=== PATIENT | female | born 1970 | race Caucasian/White ===

== ENCOUNTER 2017-01-01 13:43 | Emergency (ER) | payer BC, MEDICAID ==
[2017-01-01] MEDS ORDERED: OXYCODONE-ACETAMINOPHEN 5-325 MG TABLET PO ONE (14:56)
[2017-01-01] MEDS ORDERED: ONDANSETRON 4 MG TAB.RAPDIS PO ONE (14:56)
[2017-01-01] MEDS ORDERED: NORMAL SALINE 1000 ML 1,000 ML IV PRN (14:57)
--- NOTE | 2017-01-01 14:58 | ER Document Report ---
ED Medical Screen (RME) - General Chief Complaint: Flank Pain Stated Complaint: FLANK PAIN Time Seen by Provider: 01/01/17 14:51 Mode of Arrival: Ambulatory Information source: Patient Notes: This is a 46-year-old female presenting to the emergency room with left flank pain progressively worsening over the past week. TRAVEL OUTSIDE OF THE [place] IN LAST 30 DAYS: No - Related Data Allergies/Adverse Reactions: No Known Allergies Allergy (Verified 01/01/17 13:58) Past Medical History - Social History Frequency of alcohol use: None Drug Abuse: None Pulmonary Medical History: Reports: Hx Asthma Endocrine Medical History: Reports: Hx Hypothyroidism Renal/ Medical History: Denies: Hx Peritoneal Dialysis Past Surgical History: Reports: Hx Abdominal Surgery, Hx Section, Hx Cholecystectomy, Hx Hysterectomy, Hx Orthopedic Surgery - Immunizations Immunizations up to date: Yes Hx Diphtheria, Pertussis, Tetanus Vaccination: No Physical Exam - Vital signs Vitals: Temp Pulse Resp BP Pulse Ox 98.4 F 80 20 153/95 H 96 01/01/17 13:59 01/01/17 13:59 01/01/17 13:59 01/01/17 13:59 01/01/17 13:59 Course - Vital Signs Vital signs: Temp Pulse Resp BP Pulse Ox 98.4 F 80 20 153/95 H 96 01/01/17 13:59 01/01/17 13:59 01/01/17 13:59 01/01/17 13:59 01/01/17 13:59
[2017-01-01 15:34] LABS: ABSOLUTE BASOPHILS # (AUTO) 0.1 10^3/uL (0.0-0.2); ABSOLUTE EOSINOPHILS # (AUTO) 0.1 10^3/uL (0.0-0.6); ABSOLUTE LYMPHOCYTES (AUTO) 3.3 10^3/uL (0.5-4.7); ABSOLUTE MONOCYTES (AUTO) 0.8 10^3/uL (0.1-1.4); ABSOLUTE NEUT (AUTO) 4.7 10^3/uL (1.7-8.2); BASOPHILS % (AUTO) 0.8 % (0-2); EOSINOPHILS % (AUTO) 1.5 % (0-6); HEMATOCRIT 46.8 % (36.0-47.0); HEMOGLOBIN 15.4 g/dL (12.0-15.5); HGB HCT DIFFERENCE -0.6; LYMPHOCYTES % (AUTO) 36.5 % (13-45); MEAN CORPUSCULAR HGB CONC 32.8 g/dL (32.0-36.0); MEAN CORPUSCULAR VOLUME 85 fl (80-97); MONOCYTES % (AUTO) 8.8 % (3-13); RED BLOOD COUNT 5.48 10^6/uL (3.72-5.28); RED CELL DISTRIBUTION WIDTH 13.5 % (11.5-14.0); SEGMENTED NEUTROPHILS % (AUTO) 52.4 % (42-78); WHITE BLOOD COUNT 8.9 10^3/uL (4.0-10.5)
[2017-01-01 15:39] LABS: APPEARANCE,URINE CLEAR; BILIRUBIN,URINE NEGATIVE (NEGATIVE); GLUCOSE, URINE NEGATIVE (NEGATIVE); KETONES,URINE NEGATIVE (NEGATIVE); LEUKOCYTE ESTERASE,URINE NEGATIVE (NEGATIVE); NITRITE,URINE NEGATIVE (NEGATIVE); PROTEIN,URINE NEGATIVE (NEGATIVE); URINE SPECIFIC GRAVITY 1.015; UROBILINOGEN,URINE NEGATIVE mg/dL (<2.0)
[2017-01-01 15:47] LABS: ALANINE AMINOTRANSFERASE 39 U/L (9-52); ALBUMIN 4.3 g/dL (3.5-5.0); ALKALINE PHOSPHATASE 87 U/L (38-126); ANION GAP 9 (5-19); ASPARTATE AMINO TRANSFERASE 48 U/L (14-36); BILIRUBIN,DIRECT 0.4 mg/dL (0.0-0.4); BILIRUBIN,TOTAL 0.9 mg/dL (0.2-1.3); BLOOD UREA NITROGEN 14 mg/dL (7-20); CALCIUM 9.6 mg/dL (8.4-10.2); CARBON DIOXIDE 27 mmol/L (22-30); CHLORIDE 105 mmol/L (98-107); CREATININE RESULT 0.84 mg/dL (0.52-1.25); GLUCOSE 81 mg/dL (75-110); POTASSIUM 4.3 mmol/L (3.6-5.0); SODIUM 141.4 mmol/L (137-145); TOTAL PROTEIN 8.4 g/dL (6.3-8.2)
--- NOTE | 2017-01-01 15:47 | ER Document Report ---
ED General - General Mode of Arrival: Ambulatory Information source: Patient TRAVEL OUTSIDE OF THE [place] IN LAST 30 DAYS: No - HPI Onset: Other - Refer to HPI notes Similar symptoms previously: Yes Recently seen / treated by doctor: No <YUDELKA DUQUE - Last Filed: 01/01/17 19:15> <MICHELLESYLVIA ANN - Last Filed: 01/01/17 21:43> - General Chief Complaint: Flank Pain Stated Complaint: FLANK PAIN Time Seen by Provider: 01/01/17 14:51 Notes: Patient is a 46 year old female presenting to the emergency department for left- sided back pain. Patient states her pain has been present for 5-6 weeks and has been worse this week. Patient states her pain was gradual and is exacerbated with movement and walking. Patient denies any injury or change in her everyday activities. 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 Patient states this week her pain is moving into her side. Patient has a history of cholecystectomy , multiple orthopedic surgeries, tubal , D&C, hysterectomy, and Cesarian section x2. (YUDELKA DUQUE) - Related Data Allergies/Adverse Reactions: No Known Allergies Allergy (Verified 01/01/17 13:58) Past Medical History - General Information source: Patient - Social History Smoking Status: Never Smoker Cigarette use (# per day): No Chew tobacco use (# tins/day): No Frequency of alcohol use: None Drug Abuse: None Family History: None Patient has suicidal ideation: No Patient has homicidal ideation: No Pulmonary Medical History: Reports: Hx Asthma Endocrine Medical History: Reports: Hx Hypothyroidism Past Surgical History: Reports: Hx Abdominal Surgery, Hx Section, Hx Cholecystectomy, Hx Hysterectomy, Hx Orthopedic Surgery - Immunizations Immunizations up to date: Yes Hx Diphtheria, Pertussis, Tetanus Vaccination: No <YUDELKA DUQUE - Last Filed: 01/01/17 19:15> Review of Systems - Review of Systems Constitutional: No symptoms reported EENT: No symptoms reported Cardiovascular: No symptoms reported Respiratory: No symptoms reported Gastrointestinal: No symptoms reported Genitourinary: No symptoms reported Female Genitourinary: No symptoms reported Musculoskeletal: See HPI, Back pain Skin: No symptoms reported Hematologic/Lymphatic: No symptoms reported Neurological/Psychological: No symptoms reported -: Yes All other systems reviewed and negative <YUDELKA DUQUE - Last Filed: 01/01/17 19:15> Physical Exam - Vital signs Interpretation: Hypertensive <YDUELKA DUQUE - Last Filed: 01/01/17 19:15> <SYLVIA MARTINEZ - Last Filed: 01/01/17 21:43> - Vital signs Vitals: Temp Pulse Resp BP Pulse Ox 98.4 F 80 20 153/95 H 96 01/01/17 13:59 01/01/17 13:59 01/01/17 13:59 01/01/17 13:59 01/01/17 13:59 - Notes Notes: GENERAL: Alert, interacts well. No acute distress. HEAD: Normocephalic, atraumatic. EYES: Appear normal. Pupils equal, round, and reactive to light. ENT: Moist mucus membranes, tongue midline. NECK: Full range of motion. Supple. Trachea midline. LUNGS: Clear to auscultation bilaterally, no wheezes, rales, or rhonchi. No respiratory distress. HEART: Regular rate and rhythm. No murmurs, gallops, or rubs. ABDOMEN: Soft, non-tender. Non-distended. Normal bowel sounds. BACK: Tenderness to palpation over the left paraspinal L1-L5 and over the left SI joint. EXTREMITIES: Moves all 4 extremities spontaneously. Normal strength. No edema. NEUROLOGICAL: Alert and oriented x3. Normal speech. No focal neurological deficits. GSC 15. PSYCH: Normal affect, normal mood. SKIN: Warm, dry, normal turgor. No rashes or lesions noted. (YUDELKA DUQUE) Course - Laboratory Result Diagrams: 01/01/17 15:20 01/01/17 15:20 <YUDELKA DUQUE - Last Filed: 01/01/17 19:15> - Laboratory Result Diagrams: 01/01/17 15:20 01/01/17 15:20 <SYLVIA MARTINEZ - Last Filed: 01/01/17 21:43> - Re-evaluation Re-evalutation: 01/01/17 18:26 Re-evaluated patient at this time. Patient is feeling better and was able to sleep from. Patient would like to go home with muscle relaxers. (YUDELKA DUQUE) 01/01/17 16:38 Patient is a 46-year-old female who comes in with back pain. It is worse with movement and reproducible. Feeling better after soma. Patient will be discharged home with pain medication and muscle relaxant. No indication for CT at this time. Understands and agrees with plan. Stable for discharge. Neurovascularly intact. Return if any further concerns. (SYLVIA MARTINEZ) - Vital Signs Vital signs: Temp Pulse Resp BP Pulse Ox 97.8 F 72 16 107/74 96 01/01/17 18:47 01/01/17 18:47 01/01/17 18:47 01/01/17 18:47 01/01/17 18:47 - Laboratory Laboratory results interpreted by me: 01/01/17 01/01/17 15:20 15:20 RBC 5.48 H AST 48 H Total Protein 8.4 H Discharge <YUDELKA DUQUE - Last Filed: 01/01/17 19:15> <SYLVIA MARTINEZ - Last Filed: 01/01/17 21:43> - Discharge Clinical Impression: Back pain, Lumbar strain Condition: Stable Disposition: HOME, SELF-CARE Instructions: Low Back Pain ([facility]), Stretching Exercises for the Back ([facility]), Muscle Strain ([facility]) Prescriptions: Carisoprodol [Soma 350 Mg Tablet] 350 mg PO DAILY #14 tablet Oxycodone HCl/Acetaminophen [Percocet 5-325 mg Tablet] 1 - 2 tab PO Q4H PRN #20 tablet PRN Reason: Forms: Return to Work Scribe Documentation - Scribe Written by Scribe:: Onesimo Lee, 01/01/2017 17:38 acting as scribe for :: Michelle <YUDELKA DUQUE - Last Filed: 01/01/17 19:15>
[2017-01-01] MEDS ORDERED: CARISOPRODOL 350 MG TABLET PO ONE (16:38)
[2017-01-01 18:54] VITALS: BP 107/74
== END 2017-01-01 18:55 | disposition home or self-care (01) ==
LOC: ER 13:43
DX: S39.012A Strain of muscle, fascia and tendon of lower back, initial encounter (principal); R10.9 Unspecified abdominal pain; X58.XXXA Exposure to other specified factors, initial encounter; E03.9 Hypothyroidism, unspecified; Z90.710 Acquired absence of both cervix and uterus; Z90.49 Acquired absence of other specified parts of digestive tract
CPT/HCPCS: 99284; 96360; 36415; 85025; 80053; 81001; J3490; S0119; J7030

== ENCOUNTER 2017-03-11 23:39 | Emergency (ER) | payer BC ==
--- NOTE | 2017-03-12 02:45 | ER Document Report ---
ED General - General Chief Complaint: Chest Pain Stated Complaint: CHEST PAIN Time Seen by Provider: 03/12/17 02:32 Notes: Patient is a 46-year-old female who presents with complaint of chest pain shortness of breath. She says is been ongoing for several months now. She did see her doctor recently and her doctor told her that it was probably because her triglycerides were high. Patient was placed on a cholesterol medication she says it may have helped her symptoms for a week or 2 but now her symptoms have returned. She denies any family history of coronary disease at a young age. She denies smoking. She denies history of hypertension or diabetes. She denies history of DVT or PE. She says her father does have a clotting disorder which is caused him to have PEs and her father is on chronic anticoagulation. TRAVEL OUTSIDE OF THE [place] IN LAST 30 DAYS: No - Related Data Allergies/Adverse Reactions: No Known Allergies Allergy (Verified 01/01/17 13:58) Past Medical History - Social History Smoking Status: Never Smoker Frequency of alcohol use: None Drug Abuse: None Family History: None Patient has suicidal ideation: No Patient has homicidal ideation: No Pulmonary Medical History: Reports: Hx Asthma Endocrine Medical History: Reports: Hx Hypothyroidism Renal/ Medical History: Denies: Hx Peritoneal Dialysis Past Surgical History: Reports: Hx Abdominal Surgery, Hx Section, Hx Cholecystectomy, Hx Hysterectomy, Hx Orthopedic Surgery - Immunizations Immunizations up to date: Yes Hx Diphtheria, Pertussis, Tetanus Vaccination: No Review of Systems - Review of Systems Notes: My Normal Review Basic REVIEW OF SYSTEMS: CONSTITUTIONAL : Denies fever, chills, or sweats. Denies recent illness. EENT: Denies eye, ear, throat, or mouth pain or symptoms. Denies nasal or sinus congestion. CARDIOVASCULAR: Has chest pain RESPIRATORY: Denies cough, cold, or chest congestion. Some shortness of breath. GASTROINTESTINAL: Denies abdominal pain. Denies nausea, vomiting, or diarrhea. Denies constipation. Last BM: GENITOURINARY: Denies difficulty urinating, painful urination, burning, frequency, or blood in urine. MUSCULOSKELETAL: Denies neck or back pain or joint pain or swelling. SKIN: Denies rash or skin lesions. NEUROLOGICAL: Denies altered mental status or loss of consciousness. Denies headache. Denies weakness or paralysis or loss of use of either side. Denies problems with gait or speech. Denies sensory or motor loss. ALL OTHER SYSTEMS REVIEWED AND NEGATIVE. Physical Exam - Vital signs Vitals: Temp Pulse Resp BP Pulse Ox 97.7 F 83 18 123/91 H 97 03/12/17 00:34 03/12/17 00:34 03/12/17 00:34 03/12/17 00:34 03/12/17 00:34 - Notes Notes: General Appearance: Well nourished, alert, cooperative,no acute distress, no obvious discomfort. Tachypnea. Vitals: reviewed, See vital signs table. Head: no swelling or tenderness to the head Eyes: PERRL, EOMI, Conjuctiva clear Mouth: No decreasd moisture Neck: Supple, no neck tenderness, No thyromegaly Lungs: No wheezing, No rales, No rhonci, No accessory muscle use, good air exchange bilaterally. Heart: Normal rate, Regular rythm, No murmur, no rub Abdomen: Normal BS, soft, No rigidity, No abdominal tenderness, No guarding, no rebound, Extremities: strength 5/5 in all extremities, good pulses in all extremities, no swelling or tenderness in the extremities, no edema. Skin: warm, dry, appropriate color, no rash Neuro: speech clear, oriented x 3, normal affect, responds appropriately to questions. Course - Re-evaluation Re-evalutation: 03/12/17 06:42 Patient's telemetry evaluation is unremarkable. She has been having chest pain now for several months. This was causing infarction of expect her to have some chronic enzyme elevation and she does not. Her EKG is non-concerning. I did obtain a CT of her chest being that her father has history of clotting disorder. I want to make sure that she does not have the same thing and have a pulmonary embolism. CT of the chest is negative. The patient first arrived she did have some tachypnea and actually seems somewhat anxious. When I went in the room to reevaluate the patient she was actually sleeping very comfortably. I woke her up again she briefly appeared anxious again and then calm down. Suspect there could possibly be anxiety component to her chest pain but this is still not 100% clear. I informed her at this time we would discharge her and refer her to a head char filter tank tender. I encouraged her to make an appointment with a head char filter tank tender to follow-up closely for further testing. I encouraged her return to ER if she has worsening pain, increased difficulty breathing, fevers, or she feels that she is worsening. Patient agrees with plan will be discharged home. Patient's heart score is 1. Patient's only significant risk factor is high cholesterol. Dictation of this chart was performed using voice recognition software; therefore, there may be some unintended grammatical errors. - Vital Signs Vital signs: Temp Pulse Resp BP Pulse Ox 97.7 F 83 12 104/88 H 95 03/12/17 00:34 03/12/17 00:34 03/12/17 05:01 03/12/17 05:01 03/12/17 05:01 - Laboratory Result Diagrams: 03/12/17 03:06 03/12/17 03:06 Laboratory results interpreted by me: 03/12/17 03/12/17 03:06 03:06 Seg Neutrophils % 39.4 L Lymphocytes % 50.3 H Est GFR (Non-Af Amer) 52 L - EKG Interpretation by Me Additional EKG results interpreted by me: 03/12/17 02:33 EKG is reviewed and interpreted by me. EKG shows normal sinus rhythm with a rate of [address] segment elevation or depression. No ischemic T-wave inversions. Portable, QRS duration, QTc intervals are within normal range. No old EKG available for comparison. Discharge - Discharge Clinical Impression: Chest pain Qualifiers: Chest pain type: unspecified Qualified Code(s): R07.9 - Chest pain, unspecified Condition: Good Disposition: HOME, SELF-CARE Additional Instructions: CHEST PAIN OF UNCLEAR CAUSE: The exact cause of your chest pain isn't clear. Fortunately, there is no evidence of a dangerous medical condition. Further testing may be required to find the source of the pain. Most often, we find that this pain is coming from the chest wall -- the muscles or rib joints in the chest. But chest pain can come from the lung and lung lining, the esophagus, the heart valves or heart lining, and even the stomach or gallbladder. Rest. Eat lightly until the pain is gone. We may prescribe medicine for pain and inflammation. You should call the physician immediately if the pain radiates to the shoulder, jaw or arms; if you start to run a fever or develop a cough; or if you develop shortness of breath, or other new or alarming symptoms. NORMAL EXAM AND WORKUP: At this time, your examination and workup show no significant abnormality. No significant abnormal physical findings were noted. All laboratory, EKG, and imaging ( CT scans,) studies that were ordered show no significant abnormality. Although your examination and all studies that were ordered showed no significant abnormal finding, there are no examinations and no studies that are 100% accurate. There is always the possibility that some abnormality could exist and not be detected with physical examination or within the limits and capabilities of laboratory and other studies. You should return or follow up as you were instructed on your visit today for further evaluation if your symptoms do not resolve. ASPIRIN: Aspirin has been shown to have a beneficial effect on blood circulation by reducing the clotting effect of platelets in the blood. These beneficial effects can be achieved by taking just a single baby (81 mg) aspirin a day. It is recommended that any person over the age of forty take a single baby aspirin every day for heart and brain circulation, unless you are allergic to aspirin or have some significant bleeding disorder. It is strongly recommended that people who have proven cardiac or blood circulation disturbances should take a baby aspirin every day. FOLLOW-UP CARE: If you have been referred to a physician for follow-up care, call the physician s office for an appointment as you were instructed or within the next two days. If you experience worsening or a significant change in your symptoms, notify the physician immediately or return to the Emergency Department at any time for re-evaluation. Please follow up with the head char filter tank tender for reevaluation and further testing. Please call their office to make an appointment. Please return to the ER if you have worsening pain, worsening difficulty breathing, fevers, or feel that you are getting worse in any way. Please take a daily 81mg aspirin. Forms: Return to Work Referrals: SHIRA PIZANO MD [EMERITUS] - Follow up in 3-5 days DOROTHY LEWIS MD [ACTIVE STAFF] - Follow up in 3-5 days
[2017-03-12 03:31] LABS: ABSOLUTE EOSINOPHILS # (AUTO) 0.1 10^3/uL (0.0-0.6); ABSOLUTE LYMPHOCYTES (AUTO) 3.8 10^3/uL (0.5-4.7); ABSOLUTE MONOCYTES (AUTO) 0.7 10^3/uL (0.1-1.4); BASOPHILS % (AUTO) 0.2 % (0-2); EOSINOPHILS % (AUTO) 1.2 % (0-6); HEMOGLOBIN 14.2 g/dL (12.0-15.5); HGB HCT DIFFERENCE 1.6; LYMPHOCYTES % (AUTO) 50.3 % (13-45); MEAN CORPUSCULAR HGB CONC 34.6 g/dL (32.0-36.0); MEAN CORPUSCULAR VOLUME 84 fl (80-97); MONOCYTES % (AUTO) 8.9 % (3-13); RED CELL DISTRIBUTION WIDTH 13.1 % (11.5-14.0); SEGMENTED NEUTROPHILS % (AUTO) 39.4 % (42-78); WHITE BLOOD COUNT 7.6 10^3/uL (4.0-10.5)
[2017-03-12 03:43] LABS: ALANINE AMINOTRANSFERASE 43 U/L (9-52); ALBUMIN 4.1 g/dL (3.5-5.0); ALKALINE PHOSPHATASE 55 U/L (38-126); ANION GAP 12 (5-19); ASPARTATE AMINO TRANSFERASE 27 U/L (14-36); BILIRUBIN,DIRECT 0.4 mg/dL (0.0-0.4); BILIRUBIN,TOTAL 0.7 mg/dL (0.2-1.3); BLOOD UREA NITROGEN 20 mg/dL (7-20); CALCIUM 10.1 mg/dL (8.4-10.2); CARBON DIOXIDE 22 mmol/L (22-30); CHLORIDE 107 mmol/L (98-107); CREATINE KINASE 51 U/L (30-135); CREATININE RESULT 1.12 mg/dL (0.52-1.25); GLUCOSE 92 mg/dL (75-110); LIPASE 87.9 U/L (23-300); POTASSIUM 4.2 mmol/L (3.6-5.0); SODIUM 140.7 mmol/L (137-145); TOTAL PROTEIN 7.2 g/dL (6.3-8.2)
--- NOTE | 2017-03-12 03:44 | RADIOLOGY REPORT (SQ) ---
EXAM DESCRIPTION: CTA CHEST COMPLETED DATE/TIME: 03/12/2017 3:27 am REASON FOR STUDY: dyspnea COMPARISON: None. TECHNIQUE: CT scan of the chest performed using helical scanning technique with dynamic intravenous contrast injection. Images reviewed with lung, soft tissue and bone windows. Reconstructed coronal and sagittal MPR images reviewed. Additional 3 dimensional post-processing performed to develop Maximal Intensity Projection images (TN P). All images stored on PACS. All CT scanners at this facility use dose modulation, iterative reconstruction, and/or weight based d osing when appropriate to reduce radiation dose to as low as reasonably achievable (ALARA). [facility]: Dose Right [facility]: CareDose [facility]: Dose Right [facility]: Teradose 4D [facility]: [employer] CONTRAST TYPE AND DOSE: contrast/concentration: Isovue 370.00 mg/ml; Total Contrast Delivered: 100.0 ml; Total Saline Delivered: 65.0 ml RENAL FUNCTION: None required. The patient is less than 50 years old. RADIATION DOSE: Up-to-date CT equipment and radiation dose reduction techniques were employed. CTDIv ol: 29.8 mGy. DLP: 901 mGy-cm. . LIMITATIONS: As below. FINDINGS: LUNGS AND PLEURA: No masses, infiltrates, pneumothorax. No pleural effusions, calcificati ons. AORTA AND GREAT VESSELS: No aneurysm. Contrast bolus not optimized for the aorta. HEART: No pericardial effusion. No significant coronary artery calcifications. No right ventricular strain. PULMONARY ARTERIES: No emboli visualized in the main pulmonary arteries or the segmental branches. P ulmonary arterial enhancement measures 236 Hounsfield units, borderline suboptimal. HILAR AND MEDIASTINAL STRUCTURES: No identified masses or abnormal nodes. HARDWARE: None in the chest. UPPER ABDOMEN: No significant findings. Limited exam. THYROID AND OTHER SOFT TISSUES: No masses. No adenopathy. BONES: No acute or significant finding. Mild disc desiccation. 3D MIPS: Confirm above findings. OTHER: No other significant finding. IMPRESSION: No acute cardiopulmonary findings. No evidence of pulmonary emboli. Limitation. COMMENT: Quality ID # [id number]: Final reports with documentation of one or more dose reduction techniques (e.g., Automated exposure control, adjustment of the mA and/or kV according to patient size, use of iterative reconstruction technique) TECHNICAL DOCUMENTATION: JOB ID: [id number]- All Rights Reserved
[2017-03-12 03:54] LABS: CREATINE KINASE MB 0.43 ng/mL (<4.55)
[2017-03-12 03:55] LABS: TROPONIN I < 0.012 ng/mL
[2017-03-12 05:31] VITALS: BP 104/88
--- NOTE | 2017-03-12 08:03 | EKG REPORT ---
SEVERITY:- NORMAL ECG - SINUS RHYTHM : Confirmed by: Miriam Perry 12-Mar-2017 08:02:37
== END 2017-03-12 05:10 | disposition home or self-care (01) ==
LOC: ER 23:39
DX: R07.9 Chest pain, unspecified (principal); R06.02 Shortness of breath; Z90.49 Acquired absence of other specified parts of digestive tract; Z90.710 Acquired absence of both cervix and uterus
CPT/HCPCS: 36415; 71275; 80053; 82550; 82553; 83690; 83880; 84484; 85025; 93005; 93010; 99285

== ENCOUNTER 2017-03-15 15:37 | Emergency (ER) | payer OTHER, BC ==
--- NOTE | 2017-03-15 16:50 | ER Document Report ---
ED General - General Chief Complaint: Head Injury Stated Complaint: HEAD INJURY Time Seen by Provider: 03/15/17 16:41 Mode of Arrival: Ambulatory Information source: Patient Notes: 46-year-old female struck her head on when a door open and hit her on the side presents with complaints of continued headache. Patient denies any LOC at that time denies any neurological deficits patient admits nausea vomiting TRAVEL OUTSIDE OF THE [place] IN LAST 30 DAYS: No - Related Data Allergies/Adverse Reactions: No Known Allergies Allergy (Verified 03/15/17 15:55) Past Medical History - Social History Smoking Status: Never Smoker Chew tobacco use (# tins/day): No Frequency of alcohol use: None Drug Abuse: None Family History: None Patient has suicidal ideation: No Pulmonary Medical History: Reports: Hx Asthma Endocrine Medical History: Reports: Hx Hypothyroidism Renal/ Medical History: Denies: Hx Peritoneal Dialysis GI Medical History: Reports: Hx Gastroesophageal Reflux Disease Past Surgical History: Reports: Hx Abdominal Surgery, Hx Section, Hx Cholecystectomy, Hx Hysterectomy, Hx Orthopedic Surgery - Immunizations Immunizations up to date: Yes Hx Diphtheria, Pertussis, Tetanus Vaccination: No Physical Exam - Vital signs Vitals: Temp Pulse Resp BP Pulse Ox 97.9 F 82 18 134/93 H 96 03/15/17 15:55 03/15/17 15:55 03/15/17 15:55 03/15/17 15:55 03/15/17 15:55 Course - Re-evaluation Re-evalutation: 03/15/17 17:17 CT noted no significant abnormality patient otherwise looks well will discharge home with head injury concerns After performing a Medical Screening Examination, I estimate there is LOW risk for ACUTE GLAUCOMA, TEMPORAL ARTERITIS, MENINGITIS, INCRANIAL HEMORRHAGE, or ISCHEMIC STROKE thus I consider the discharge disposition reasonable. I have reevaluated this patient multiple times and no significant life threatening changes are noted. The patient and I have discussed the diagnosis and risks, and we agree with discharging home with close follow-up with the understanding that symptoms and presentations can change. We also discussed returning to the Emergency Department immediately if new or worsening symptoms occur. We have discussed the symptoms which are most concerning (e.g., changing or worsening symptoms, new numbness or weakness, vomiting, fever) that necessitate immediate return. - Vital Signs Vital signs: Temp Pulse Resp BP Pulse Ox 97.9 F 82 18 134/93 H 96 03/15/17 15:55 03/15/17 15:55 03/15/17 15:55 03/15/17 15:55 03/15/17 15:55 - Diagnostic Test Radiology reviewed: Image reviewed, Reports reviewed - no acute abnormality Discharge - Discharge Clinical Impression: Concussion Qualifiers: Encounter type: initial encounter Loss of consciousness presence/duration: without LOC Qualified Code(s): S06.0X0A - Concussion without loss of consciousness, initial encounter Head injury Qualifiers: Encounter type: initial encounter Qualified Code(s): S09.90XA - Unspecified injury of head, initial encounter Condition: Stable Disposition: HOME, SELF-CARE Instructions: Concussion ([facility]) Referrals: TALIA HIDALGO MD [ACTIVE STAFF] - Follow up tomorrow
--- NOTE | 2017-03-15 17:14 | RADIOLOGY REPORT (SQ) ---
EXAM DESCRIPTION: CT HEAD WITHOUT COMPLETED DATE/TIME: 03/15/2017 5:00 pm REASON FOR STUDY: head injury COMPARISON: None. TECHNIQUE: Axial images acquired through the brain without intravenous contrast. Images reviewed wi th bone, brain and subdural windows. Images stored on PACS. All CT scanners at this facility use dose modulation, iterative reconstruction, and/or weight based d osing when appropriate to reduce radiation dose to as low as reasonably achievable (ALARA). [facility]: Dose Right [facility]: CareDose [facility]: Dose Right [facility]: Teradose 4D [facility]: [employer] RADIATION DOSE: Up-to-date CT equipment and radiation dose reduction techniques were employed. CTDIv ol: 64.6 mGy. DLP: 1034 mGy-cm. mGy. LIMITATIONS: None. FINDINGS: VENTRICLES: Normal size and contour. CEREBRUM: No masses. No hemorrhage. No midline shift. No evidence for acute infarction. Normal gra y/white matter differentiation. No areas of low density in the white matter. CEREBELLUM: No masses. No hemorrhage. No alteration of density. No evidence for acute infarction. EXTRAAXIAL SPACES: No fluid collections. No masses. ORBITS AND GLOBE: No intra- or extraconal masses. Normal contour of globe without masses. CALVARIUM: No fracture. PARANASAL SINUSES: No fluid or mucosal thickening. SOFT TISSUES: No mass or hematoma. OTHER: No other significant finding. IMPRESSION: NORMAL BRAIN CT WITHOUT CONTRAST. EVIDENCE OF ACUTE STROKE: NO. COMMENT: Quality ID # [id number]: Final reports with documentation of one or more dose reduction techniques (e.g., Automated exposure control, adjustment of the mA and/or kV according to patient size, use of iterative reconstruction technique) TECHNICAL DOCUMENTATION: JOB ID: [id number]- All Rights Reserved
[2017-03-15 17:22] VITALS: BP 134/87
== END 2017-03-15 17:26 | disposition home or self-care (01) ==
LOC: ER 15:37
DX: S06.0X0A Concussion without loss of consciousness, initial encounter (principal); W20.8XXA Other cause of strike by thrown, projected or falling object, initial encounter; Y99.0 Civilian activity done for income or pay; R11.2 Nausea with vomiting, unspecified; J45.909 Unspecified asthma, uncomplicated
CPT/HCPCS: 70450; 99283